=== PATIENT | female | born 1970 | race Caucasian/White ===

== ENCOUNTER → 2016-11-10 | Outpatient (CLI) | payer OTHER ==
[~2016-11-10] MED LIST: CIPRO 500MG TA500 MG PO; ZOFRAN ODT4 MG PO; [UNRECOGNIZED DRUG - OTHER]; [UNRECOGNIZED DRUG - OTHER]
== END ==
LOC: MC.RAD 16:20
DX: Z12.31 Encounter for screening mammogram for malignant neoplasm of breast (principal)

== ENCOUNTER → 2018-09-14 | Outpatient (CLI) | payer BC | LOC: MC.RAD 07:34 | DX: Z12.31 Encounter for screening mammogram for malignant neoplasm of breast (principal) ==

== ENCOUNTER 2019-03-12 07:22 | Day surgery (SDC) | payer BC ==
[~2019-03-12] VITALS: Ht 170.2 cm; Wt 70.0 kg
[2019-03-12] MEDS ORDERED: CELEXA40 MG PO (07:40)
[2019-03-12] MEDS ORDERED: PREMARIN .3MG0.3 MG PO (07:41)
[2019-03-12 08:03] VITALS: BP 111/72; PULSE 80; TEMP 97
[2019-03-12 09:45] VITALS: BP 120/68; PULSE 85; TEMP 97.2
--- NOTE | 2019-03-12 09:45 | NUR ---
Patient arrives back to [facility] alert, denies pain or nausea. Patient monitor applied, vitals stable. Patient given soda and muffin. Patient's sister brought to room.
[2019-03-12 10:00] VITALS: BP 116/86; PULSE 82
--- NOTE | 2019-03-12 10:00 | NUR ---
Patient tolerating soda and muffin without any nausea. Vitals stable. Patient reports that she feels great. Waiting for Dr Rivera to go over procedure results.
--- NOTE | 2019-03-12 10:10 | NUR ---
Dr Rivera into see patient at this time.
[2019-03-12 10:15] VITALS: BP 118/72; PULSE 74
--- NOTE | 2019-03-12 10:25 | NUR ---
Dismissal instructions and patient education gone over with patient and patient's sister. Both verbalize understanding and all questions answered.
--- NOTE | 2019-03-12 10:30 | NUR ---
Patient discharged to patient enterance ambulatory with her sister. Patient leaves thanking staff for services.
== END 2019-03-12 10:30 | disposition home or self-care (01) ==
LOC: SDCO 07:22
DX: Z12.11 Encounter for screening for malignant neoplasm of colon (principal); D12.5 Benign neoplasm of sigmoid colon; K64.0 First degree hemorrhoids; F32.9 Major depressive disorder, single episode, unspecified; Z90.710 Acquired absence of both cervix and uterus; Z79.52 Long term (current) use of systemic steroids
CPT/HCPCS: J2250; J2405; J3010; J7030

== ENCOUNTER → 2019-09-05 | Outpatient (CLI) | payer OTHER ==
[~2019-09-05] MED LIST changes: +CELEXA40 MG PO; +PREMARIN .3MG0.3 MG PO
== END ==
LOC: COL.RAD 09:20
DX: G47.00 Insomnia, unspecified (principal); Z79.890 Hormone replacement therapy; Z90.710 Acquired absence of both cervix and uterus

== ENCOUNTER → 2019-10-18 | Outpatient (CLI) | payer BC | LOC: MC.RAD 10:57 | DX: Z12.31 Encounter for screening mammogram for malignant neoplasm of breast (principal) ==

== ENCOUNTER → 2020-10-29 | Outpatient (CLI) | payer BC | LOC: MC.RAD 16:45 | DX: Z12.31 Encounter for screening mammogram for malignant neoplasm of breast (principal) ==

== ENCOUNTER → 2021-03-17 | Outpatient (CLI) | payer BC | LOC: COL.RAD 12:31 | DX: M79.671 Pain in right foot (principal) | CPT/HCPCS: J3301; Q9967 ==

== ENCOUNTER → 2021-11-30 | Outpatient (CLI) | payer BC | LOC: MC.RAD 08:57 | DX: Z12.31 Encounter for screening mammogram for malignant neoplasm of breast (principal); R92.0 Mammographic microcalcification found on diagnostic imaging of breast ==

== ENCOUNTER → 2021-12-03 | Outpatient (CLI) | payer BC | LOC: MC.RAD 06:56 | DX: R92.1 Mammographic calcification found on diagnostic imaging of breast (principal) ==

== ENCOUNTER → 2021-12-15 | Outpatient (CLI) | payer BC | LOC: MC.RAD 06:56 | DX: R92.0 Mammographic microcalcification found on diagnostic imaging of breast (principal) ==

== ENCOUNTER → 2022-12-05 | Outpatient (CLI) | payer BC | LOC: MC.RAD 12:49 | DX: Z12.31 Encounter for screening mammogram for malignant neoplasm of breast (principal) ==

== ENCOUNTER → 2024-01-30 | Outpatient (CLI) | payer BC | LOC: MC.RAD 09:45 | DX: Z12.31 Encounter for screening mammogram for malignant neoplasm of breast (principal) ==